=== PATIENT | male | born 1955 | race Caucasian/White ===

== ENCOUNTER 2023-07-10 13:13 | Emergency (ER) | payer MEDICARE, BC ==
[~2023-07-10] VITALS: Ht 175.3 cm; Wt 72.8 kg
[2023-07-10 13:38] VITALS: BP 150/63; PULSE 104; RESP 16; TEMP 99.1; O2SAT 96
[2023-07-10] MEDS ORDERED: BENZ-38 PO (14:23)
[2023-07-10] MEDS ORDERED: IBUP-1984 PO (14:23)
== END 2023-07-10 20:05 | disposition home or self-care (01) ==
LOC: ER 13:14
DX: N39.0 Urinary tract infection, site not specified (principal); Z88.8 Allergy status to other drugs, medicaments and biological substances; Z79.899 Other long term (current) drug therapy
CPT/HCPCS: 99283